=== PATIENT | female | born 1975 | race Caucasian/White ===

== ENCOUNTER 2018-02-10 22:42 | Emergency (ER) | payer BC, OTHER ==
--- NOTE | 2018-02-10 23:10 | EDM.PDOC ---
ED HPI GENERAL MEDICAL PROBLEM - General Chief Complaint: Body Fluid Exposure Stated Complaint: Worksite needle stick Time Seen by Provider: 02/10/18 23:05 Source of Information: Reports: Patient History Limitations: Reports: No Limitations - History of Present Illness INITIAL COMMENTS - FREE TEXT/NARRATIVE: Work site needle stick to palm of left hand. 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 Onset: Today Location: Reports: Upper Extremity, Left Context: Reports: Other (needle stick) - Related Data Allergies Allergy/AdvReac Type Severity Reaction Status Date / Time amoxicillin Allergy Facial Verified 02/10/18 22:44 Swelling bee venom protein (honey bee) Allergy Anaphylactic Verified 02/10/18 22:44 Shock cinnamon Allergy Anaphylactic Verified 02/10/18 22:44 Shock ciprofloxacin [From Cipro] Allergy Facial Verified 02/10/18 22:44 Swelling diphenhydramine Allergy Hives Verified 02/10/18 22:44 [From Benadryl] eletriptan [From Relpax] Allergy Anaphylactic Verified 02/10/18 22:44 Shock Penicillins Allergy Hives Verified 02/10/18 22:44 sumatriptan [From Imitrex] Allergy Facial Verified 02/10/18 22:44 Swelling Home Meds: Home Meds Dicyclomine HCl [Bentyl] 10 mg PO DAILY 07/19/17 [History] Escitalopram [Lexapro] 10 mg PO DAILY 07/19/17 [History] Pantoprazole [ProTONIX] 40 mg PO DAILY 07/19/17 [History] Valproic Acid 500 mg PO DAILY 07/19/17 [History] diazePAM [Valium] 5 mg PO BID PRN 07/19/17 [History] traMADol [Ultram] 50 mg PO QID PRN 07/19/17 [History] Past Medical History HEENT History: Reports: Other (See Below) Other HEENT History: recent ENT visit for "loos of voice" and swollen lymphnodes to neck Cardiovascular History: Reports: Other (See Below) Other Cardiovascular History: gen has bradicardia and "low BP" 100's systolic Other Respiratory History: h/o smoking Gastrointestinal History: Reports: GERD, Irritable Bowel Syndrome 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: Other (See Below) Other SHELLFISH CHECKER History: reports nodules/lumps to breast, plan for md visit and test upcomming Musculoskeletal History: Reports: Osteoporosis Other Musculoskeletal History: gen pain all over Neurological History: Reports: Concussion, Migraines Psychiatric History: Reports: Anxiety, Depression Hematologic History: Reports: Other (See Below) Other Hematologic History: going to see a sterile process coordinator on 09/28/17 for a lump on left jaw Oncologic (Cancer) History: Reports: Other (See Below) Other Oncologic History: is having nodules/lumps to breast evaluated - Past Surgical History Female Surgical History: Reports: Breast Biopsy, Hysterectomy Social & Family History - Caffeine Use Caffeine Use: Reports: Coffee, Soda ED ROS GENERAL - Review of Systems Review Of Systems: See Below Skin: Reports: Other (needle stick site on left palm) ED EXAM, GENERAL - Physical Exam Exam: See Below Skin Exam: Other (left palm with superficial needle stick site) Course - Vital Signs Last Recorded V/S: Last Vital Signs Temp 36.3 C 02/10/18 23:04 Pulse 67 02/10/18 23:04 Resp 15 02/10/18 23:04 BP 93/51 L 02/10/18 23:04 Pulse Ox 100 02/10/18 23:04 Departure - Departure Time of Disposition: 23:15 Disposition: Home, Self-Care 01 Clinical Impression: Needle stick injury - Discharge Information Referrals: Marizol Blanchard MD [Primary Care Provider] -
== END 2018-02-11 | disposition home or self-care (01) ==
LOC: LL.ED 22:42
DX: S60.921A Unspecified superficial injury of right hand, initial encounter (principal); Z77.21 Contact with and (suspected) exposure to potentially hazardous body fluids; W46.1XXA Contact with contaminated hypodermic needle, initial encounter; Y99.0 Civilian activity done for income or pay
CPT/HCPCS: 36415; 86703; 86706; 86803; 87340; 99283

== ENCOUNTER 2018-07-10 05:50 | Emergency (ER) | payer BC, OTHER ==
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
[2018-07-10] MEDS ORDERED: LORazepam 2 MG/ML SDV IVPUSH ONE (06:16)
[2018-07-10] MEDS ORDERED: Ondansetron 4 MG/2 ML SDV IVPUSH ONE (06:17)
[2018-07-10] MEDS ORDERED: HYDROmorphone 1 MG/ML Syringe IVPUSH ONE (06:18)
[2018-07-10] MEDS: Sodium Chloride 0.9% 10 ML Syringe FLUSH PRN ×2 (06:31→06:37)
[2018-07-10 06:52] LABS: CHLORIDE,CL 103 mmol/L (98-107); SODIUM,NA 139 mmol/L (136-145)
== END 2018-07-10 09:45 | disposition home or self-care (01) ==
LOC: LL.ED 05:50
DX: S32.2XXA Fracture of coccyx, initial encounter for closed fracture (principal); S22.069A Unspecified fracture of T7-T8 vertebra, initial encounter for closed fracture; S20.229A Contusion of unspecified back wall of thorax, initial encounter; F41.9 Anxiety disorder, unspecified; F41.8 Other specified anxiety disorders; K21.9 Gastro-esophageal reflux disease without esophagitis; E88.09 Other disorders of plasma-protein metabolism, not elsewhere classified; Z71.6 Tobacco abuse counseling; W10.9XXA Fall (on) (from) unspecified stairs and steps, initial encounter
CPT/HCPCS: 36415; 71046; 72070; 72220; 80053; 85025; 96374; 96375; 99285; J1170; J2060; J2405

== ENCOUNTER 2018-09-06 10:44 | Day surgery (SDC) | payer BC ==
[2018-09-06] MEDS ORDERED: Lactated Ringers 1,000 ML IV SCH ×2 (11:41→12:45)
[2018-09-06] MEDS ORDERED: Midazolam 1 MG/ML 2 ML SDV ONE ×3 (11:57→12:35)
[2018-09-06] MEDS ORDERED: Propofol 200 MG/20 ML SDV ONE ×3 (11:57→12:35)
--- NOTE | 2018-09-06 12:37 | PCM.PN ---
- General Info Date of Service: 09/06/18 - Review of Systems Systems Review Comment:: 43-year-old female referred for colonoscopy. She has a recent history of change in bowel pattern. She is also been having some history of left sided abdominal pain. The patient also notes rectal bleeding with bowel movements often in the recent past. The patient's recent history and physical is reviewed and no significant changes are noted. I discussed the proposed colonoscopy with the patient. She agrees to proceed accepting risks. - Patient Data Vitals - Most Recent: Last Vital Signs Temp 97.4 F 09/06/18 11:32 Pulse 52 L 09/06/18 11:32 Resp 20 09/06/18 11:32 BP 95/54 L 09/06/18 11:32 Pulse Ox 97 09/06/18 11:32 Weight - Most Recent: 53.524 kg Med Orders - Current: Current Medications Lactated Ringer's (Ringers, Lactated) 1,000 mls @ 125 mls/hr IV ASDIRECTED FABRICIO Last Admin: 09/06/18 11:43 Dose: 125 mls/hr Sodium Chloride (Saline Flush) 10 ml FLUSH ASDIRECTED PRN PRN Reason: Keep Vein Open Discontinued Medications Lactated Ringer's (Ringers, Lactated) 1,000 mls @ 125 mls/hr IV ASDIRECTED FABRICIO Midazolam HCl (Versed 1 Mg/Ml) Confirm Administered Dose 2 mg .ROUTE .STK-MED ONE Stop: 09/06/18 11:58 Propofol (Diprivan 20 Ml) Confirm Administered Dose 200 mg .ROUTE .STK-MED ONE Stop: 09/06/18 11:58 - Problem List Review Problem List Initiated/Reviewed/Updated: Yes - My Orders Last 24 Hours: My Active Orders 09/06/18 11:41 Lactated Ringers [Ringers, Lactated] 1,000 ml IV ASDIRECTED 09/06/18 12:45 Patient Status [ADT] Routine Peripheral IV Care [RC] . DIRECTED Verify Patient Consent Obtain [RC] ASDIRECTED Sodium Chloride 0.9% [Saline Flush] 10 ml FLUSH ASDIRECTED PRN Peripheral IV Insertion Adult [OM.PC] Routine - Assessment Assessment:: Rectal Bleeding - Plan Plan:: Colonoscopy
[2018-09-06] MEDS ORDERED: Sodium Chloride 0.9% 10 ML Syringe FLUSH PRN (12:45)
--- NOTE | 2018-09-06 13:18 | PCM.OPNOTE ---
- General Post-Op/Procedure Note Date of Surgery/Procedure: 09/06/18 Operative Procedure(s): Colonoscopy Findings: Normal appearing colon and terminal ileum Pre Op Diagnosis: Rectal bleeding Post-Op Diagnosis: Normal colon Anesthesia Technique: MAC Primary Surgeon: Sony Edwards Pathology: none EBL in mLs: 0 Complications: None Condition: Good
--- NOTE | 2018-09-07 10:41 | OR ---
Date of Procedure: 09/06/2018 REFERRING PHYSICIAN: Santo. PREOPERATIVE DIAGNOSIS: Rectal bleeding. POSTOPERATIVE DIAGNOSIS: Normal colon. OPERATIONS PERFORMED: Colonoscopy. INDICATIONS FOR SURGERY: This 43-year-old female has been having some episodes of rectal bleeding. She has also noted alternating diarrhea and constipation. She was referred for colonoscopy. Findings the patient's colon appears normal. No visible signs of inflammation, tumors, or polyps were seen. The patient's terminal ileum also appeared normal and did not appear to be acutely inflamed. DESCRIPTION OF PROCEDURE: The patient was taken to the operating room. She was given intravenous sedation and with her in the left lateral decubitus position, digital rectal exam was performed showing no rectal masses. The Olympus colonoscope was inserted into the rectum. Retroflexed examination of the rectal canal was performed. The scope was then carefully advanced under direct visualization through the entire length of the colon until the cecum was reached. Cecal acquisition was confirmed by noting the normal internal cecal anatomy including the appendiceal orifice and ileocecal valve. The light was also noted to transilluminate the abdominal wall in the right lower quadrant. The ileocecal valve was cannulated and the terminal ileum carefully examined and this appeared normal. The scope was then slowly withdrawn sequentially re- examining the colonic segments until the entire colon and rectum had been fully examined. The scope was removed. The patient was taken from the operating room in satisfactory condition. ESTIMATED BLOOD LOSS: Zero. COMPLICATIONS: None. PROGNOSIS: Good. IRLANDA Edwards MD /[id number]
== END 2018-09-06 14:12 | disposition home or self-care (01) ==
LOC: LL.SDS 10:44
PROVIDERS: ATTEND Surgery
DX: K62.5 Hemorrhage of anus and rectum (principal); R10.32 Left lower quadrant pain; K59.00 Constipation, unspecified; R19.7 Diarrhea, unspecified; F17.210 Nicotine dependence, cigarettes, uncomplicated; S32.2XXA Fracture of coccyx, initial encounter for closed fracture; X58.XXXA Exposure to other specified factors, initial encounter; Z88.6 Allergy status to analgesic agent; Z88.1 Allergy status to other antibiotic agents; Z88.5 Allergy status to narcotic agent; Z88.8 Allergy status to other drugs, medicaments and biological substances; Z88.0 Allergy status to penicillin; Z91.030 Bee allergy status; Z79.891 Long term (current) use of opiate analgesic; Z79.899 Other long term (current) drug therapy
CPT/HCPCS: J2250; J2704; J7120